=== PATIENT | female | born 2000 | race Caucasian/White ===

== ENCOUNTER → 2025-03-29 | Outpatient (CLI) | payer BC ==
--- NOTE | 2025-03-29 13:04 | XR ---
EXAMINATION TYPE: XR KUB DATE OF EXAM: 03/29/2025 12:56 PM CLINICAL INDICATION: Female, 25 years old with history of R10.817 abdominal tenderness, pain TECHNIQUE: 1 supine view of the abdomen. COMPARISON: None. FINDINGS: Gas is seen in nondistended stomach. Scattered gas is seen in non-distended small bowel loo ps. Gas and fecal material is seen in non-distended colon and rectum. There is no visceromegaly or ab normal calcification appreciated. The lung bases are clear. There is levoconvex scoliotic curvature o r positioning centered at L1-L2 level. IMPRESSION: Overall nonobstructive bowel gas pattern. [facility], , 03/29/2025 1:02 PM
== END | disposition home or self-care (01) ==
LOC: RADXRMAIN 12:43
PROVIDERS: ATTEND Internal Medicine
DX: R10.817 Generalized abdominal tenderness (principal)
CPT/HCPCS: 74018

== ENCOUNTER → 2025-04-26 | Outpatient (CLI) | payer BC | END | disposition home or self-care (01) | LOC: LABWHC1 12:08 | PROVIDERS: ATTEND Internal Medicine | DX: R74.8 Abnormal levels of other serum enzymes (principal) | CPT/HCPCS: 36415; 84207; 84630 ==